=== PATIENT | male | born 1980 | race Two or more races ===

== ENCOUNTER 2024-09-10 15:50 | Emergency (ER) | payer BC, SELFPAY ==
[2024-09-10 15:50] VITALS: BMI 26.6
[2024-09-10 17:21] VITALS: BP 159/102; PULSE 92; RESP 19; TEMP 36.8; O2SAT 98
--- NOTE | 2024-09-10 17:26 | PD.EDRME ---
Rapid Medical Screening Exam RME Arrival date/time: 09/10/24 15:50 Chief Complaint: Hand/Wrist Problems Time Seen by Provider: 09/10/24 18:18 Vital signs: Vital Signs Temperature 98.2 F 09/10/24 17:21 Pulse Rate 92 09/10/24 17:21 Respiratory Rate 19 09/10/24 17:21 Blood Pressure 159/102 H 09/10/24 17:21 Pulse Oximetry (%) 98 09/10/24 17:21 Oxygen Delivery Method Room Air 09/10/24 17:21 Pulse ox room air is 98% Vital signs reviewed by provider: Yes RME Narrative: Patient bit by a large dog injuring his right index finger.
--- NOTE | 2024-09-10 17:30 | XR_ITS ---
Examination: Hand, right 3 views Technique: Hand AP, oblique, lateral 3 views Date and time of exam: September 10, 2024 1737 hours INDICATIONS: Dog bite to the second digit with pain FINDINGS: Pathologic fracture second digit through a cyst in the distal phalanx second digit this cyst measuring 10 mm No major offset at the fracture site IMPRESSION: Fracture distal phalanx second digit No foreign body
[2024-09-10] MEDS: DIPHTH,PERTUSS(ACELL),TET VAC 0.5 ML SYR- ADULT IMi (18:07)
--- NOTE | 2024-09-10 18:18 | PD.EDHAND ---
Upper Extremity Injury RME/HPI General Chief Complaint: Hand/Wrist Problems Stated Complaint: DOG BITE RIGHT HAND TODAY Time Seen by Provider: 09/10/24 18:18 Source: patient Arrival date/time: 09/10/24 15:50 Mode of arrival: ambulatory Limitations: no limitations RME / HPI RME / HPI narrative: Patient bit by a large dog injuring his right index finger. MD complaint: injury to: right and finger (Index finger) Other injuries: none Handedness: right Severity scale (1-10): 5 Relieving factors: none Exacerbating factors: none Context: injury and other (Dog bite) Associated symptoms: other Related Data Previous Rx's ?Medication ?Instructions ?Recorded Cyclobenzaprine * (FLEXERIL *) 10 mg PO Q8HR PRN muscle spasms 12/24/16 #15 tabs ibuprofen 600 mg tablet 1 tab PO Q8HR PRN pain #30 tabs 12/24/16 cephalexin 500 mg capsule 500 mg PO Q12H #20 caps 09/26/21 doxycycline hyclate 100 mg capsule 100 mg PO BID #14 caps 09/26/21 hydrocodone 5 mg-acetaminophen 325 1 tab PO Q6H PRN pain #5 tabs 10/01/21 mg tablet ibuprofen 800 mg tablet (IBU) 800 mg PO Q8H #20 tabs 02/26/23 amoxicillin 500 mg-potassium 1 tab PO TID #30 tabs 09/10/24 clavulanate 125 mg tablet (Augmentin) ibuprofen 800 mg tablet 800 mg PO Q8H PRN pain #30 tabs 09/10/24 Allergies Allergy/AdvReac Type Severity Reaction Status Date / Time No Known Allergies Allergy Verified 09/10/24 15:52 Review of Systems Constitutional Constitutional: Reports system reviewed and no additional complaints, except as documented Eyes Eyes: Reports system reviewed and no additional complaints, except as documented, Denies dry eyes, Denies exophthalmos and Reports floaters Cardiovascular Cardiovascular: Denies chest pain with activity and Denies claudication ED Exam Narrative Physical exam: Digit #2 of the right hand positive for an animal bite the wounds are jagged and not well-approximated. The distal finger at the DIP is not involved the finger tuft is involved. General Limitations: Present no limitations General appearance: Present alert and in no apparent distress Head Head exam: Present atraumatic Eye Eye exam: Present normal appearance, PERRL and EOMI ENT ENT exam: Present normal exam, normal oropharynx and mucous membranes moist Neck Neck exam: Present normal inspection, full ROM and trachea midline Extremities Exam Extremities exam: Present normal inspection, full ROM and other (The laceration appears to be 2 cm in diameter. There are also numerous puncture wounds to the right hand. Patient retains full range of motion of all digits of the right hand with the exception of the index finger. Neurovascular is intact.) Back Exam Back exam: Present normal inspection and full ROM Neurological Exam Neurological exam: Present alert and oriented X3 Psychiatric Psychiatric exam: Present normal affect and normal mood Skin Skin exam: Present warm, dry, intact and normal color Course Course Course Narrative: Patient will have the largest laceration approximated loosely. Quality Measures none Orders Category Date Time Status XR hand comp RT min 3V Stat Exams 09/10/24 17:30 Completed TET,DIP/PERT AC (Adult)-Tdap [Boostrix Adult (Tdap) Med 09/10/24 17:30 Discontinued Vacc] 0.5 ml IMI .ONCE ONE Vital Signs Vital signs: Vital Signs Temperature 98.2 F 09/10/24 17:21 Pulse Rate 92 09/10/24 17:21 Respiratory Rate 19 09/10/24 17:21 Blood Pressure 159/102 H 09/10/24 17:21 Pulse Oximetry (%) 98 09/10/24 17:21 Oxygen Delivery Method Room Air 09/10/24 17:21 Pulse ox is 98% room air PROCEDURES: Laceration Laceration 1: Site: other (Continue #2 of the right hand) Side (If applicable): right Description: irregular Depth: simple, single layer Local Anesthetic: lidocaine 1% Extremity Injury Patient data External records reviewed:: Other (specify) (na) Clinical information provided by:: patient Social determinants that could affect healthcare access:: none Patient has the following chronic illnesses:: na How is presenting disease/condition affected by chronic disease/condition?: no chronic disease (na) Evaluation data The following diagnostics were reviewed and interpreted by me:: other (specify) (na) Lab and/or radiology exams considered but not ordered:: na Interpretation Summary: na Medications / Prescriptions Medications or Prescriptions considered but not ordered:: na Medication administrations:: Medication Administration History Discontinued Medications Diphtheria/Tetanus/Acell Pertussis (Diphth,Pertuss(Acell),Tet Vac 0.5 Ml Syr- Adult) 0.5 ml IMi .ONCE ONE Stop: 09/10/24 17:31 Last Admin: 09/10/24 18:07 Dose: 0.5 ml Documented By: TESSIE lam Consultations Consultation(s) initiated? (list below): No Diagnosis Upper Extremity Injury Differential Diagnosis: finger sprain, dislocation of finger, fracture of humerus and fracture of clavicle Most likely diagnosis given after review of the tests above:: genaro Admission Indicated Admission indicated?: not indicated Admission Request Was there a request for admission?: No Disposition Plan Disposition Plan: Discharge Discharge Attestation Discharge Attestation: The patient and all family members were given an opportunity to ask questions and understood the discharge instructions. Discharge instructions specifically effects, indications for sooner follow up or return to the emergency department, and the expected course of current diagnosis. Patient condition: Stable Discharge Plan Plan Patient Disposition: HOME (Self Care) Discharge Disposition comment: Patient discharged home in no apparent distress Patient condition on transfer: Stable Prescriptions/Referrals Prescriptions/Med Rec: New amoxicillin-pot clavulanate [Augmentin] 500-125 mg tablet 1 tab PO TID Qty: 30 0RF ibuprofen 800 mg tablet 800 mg PO Q8H PRN (Reason: pain) Qty: 30 0RF No Action ibuprofen 600 MG tablet 1 tab PO Q8HR PRN (Reason: pain) Qty: 30 0RF Cyclobenzaprine * (FLEXERIL *) 10 MG tablet 10 mg PO Q8HR PRN (Reason: muscle spasms) Qty: 15 0RF doxycycline hyclate 100 mg capsule 100 mg PO BID Qty: 14 0RF cephalexin 500 mg capsule 500 mg PO Q12H Qty: 20 0RF hydrocodone-acetaminophen 5-325 mg tablet 1 tab PO Q6H MDD 3 PRN (Reason: pain) Qty: 5 0RF ibuprofen [IBU] 800 mg tablet 800 mg PO Q8H Qty: 20 0RF Problem List Clinical Impression: Animal bite Patient/Caregiver Discharge Instructions Discharge Activity: activity as tolerated Print Language: French Stand Alone Forms: Tere Award Info., Patient Portal Info Letter, Work/School Release PA/ASSOCIATE PROFESSOR OF THEOLOGY Supervising Physician PA/ASSOCIATE PROFESSOR OF THEOLOGY Supervising Physician: Candice
--- NOTE | 2024-09-10 19:26 | PD.EDHAND ---
Upper Extremity Injury RME/HPI General Chief Complaint: Hand/Wrist Problems Stated Complaint: DOG BITE RIGHT HAND TODAY Time Seen by Provider: 09/10/24 18:18 Source: patient Arrival date/time: 09/10/24 15:50 Mode of arrival: ambulatory Limitations: no limitations RME / HPI RME / HPI narrative: Patient bit by a large dog injuring his right index finger. Handedness: right Place: outdoors Severity: moderate Severity scale (1-10): 5 Relieving factors: none Exacerbating factors: none Context: injury and other (Dog bite) Associated symptoms: other Related Data Previous Rx's ?Medication ?Instructions ?Recorded Cyclobenzaprine * (FLEXERIL *) 10 mg PO Q8HR PRN muscle spasms 12/24/16 #15 tabs ibuprofen 600 mg tablet 1 tab PO Q8HR PRN pain #30 tabs 12/24/16 cephalexin 500 mg capsule 500 mg PO Q12H #20 caps 09/26/21 doxycycline hyclate 100 mg capsule 100 mg PO BID #14 caps 09/26/21 hydrocodone 5 mg-acetaminophen 325 1 tab PO Q6H PRN pain #5 tabs 10/01/21 mg tablet ibuprofen 800 mg tablet (IBU) 800 mg PO Q8H #20 tabs 02/26/23 amoxicillin 500 mg-potassium 1 tab PO TID #30 tabs 09/10/24 clavulanate 125 mg tablet (Augmentin) ibuprofen 800 mg tablet 800 mg PO Q8H PRN pain #30 tabs 09/10/24 Allergies Allergy/AdvReac Type Severity Reaction Status Date / Time No Known Allergies Allergy Verified 09/10/24 15:52 Review of Systems Constitutional Constitutional: Reports system reviewed and no additional complaints, except as documented Eyes Eyes: Reports system reviewed and no additional complaints, except as documented, Denies dry eyes, Denies exophthalmos and Reports floaters Cardiovascular Cardiovascular: Denies chest pain with activity and Denies claudication ED Exam General Limitations: Present no limitations General appearance: Present alert and in no apparent distress Head Head exam: Present atraumatic Eye Eye exam: Present normal appearance, PERRL and EOMI ENT ENT exam: Present normal exam, normal oropharynx and mucous membranes moist Neck Neck exam: Present normal inspection, full ROM and trachea midline Chest Chest inspection: Present normal inspection and symmetric chest wall rise Respiratory Respiratory exam: Present normal lung sounds bilaterally Cardiovascular Cardiovascular exam: Present regular rate, normal rhythm and normal heart sounds Abdominal Exam Abdominal exam: Present soft and normal bowel sounds Extremities Exam Extremities exam: Present normal inspection and full ROM Back Exam Back exam: Present normal inspection and full ROM Neurological Exam Neurological exam: Present alert, oriented X3 and CN II-XII intact Psychiatric Psychiatric exam: Present normal affect and normal mood Skin Skin exam: Present warm, dry, intact and normal color Course Course Course Narrative: Patient will have the largest laceration approximated loosely. Quality Measures none (na) Orders Category Date Time Status XR hand comp RT min 3V Stat Exams 09/10/24 17:30 Completed TET,DIP/PERT AC (Adult)-Tdap [Boostrix Adult (Tdap) Med 09/10/24 17:30 Discontinued Vacc] 0.5 ml IMI .ONCE ONE Vital Signs Vital signs: Vital Signs Temperature 98.2 F 09/10/24 17:21 Pulse Rate 92 09/10/24 17:21 Respiratory Rate 19 09/10/24 17:21 Blood Pressure 159/102 H 09/10/24 17:21 Pulse Oximetry (%) 98 09/10/24 17:21 Oxygen Delivery Method Room Air 09/10/24 17:21 PROCEDURES: Laceration Laceration 1: Site: hand (Right index finger) Side (If applicable): right Size (cm): 2 Description: irregular Depth: simple, single layer Local Anesthetic: lidocaine 1% Amount of anesthesia used (mL): 10 Skin layer closed with: nylon Suture size (cm): 4-0 Number of sutures: 5 Technique: simple, interrupted Extremity Injury MDM Narrative MDM Narrative:: Patient will be discharged to home after his hand has been repaired. Patient is to primary care physician for follow-up to today's visit in 2 days. Patient will have antibiotics Augmentin sent to the pharmacy of his choice. Patient is to keep his wound clean and dry. If signs of infection in the patient is to return here. Patient data External records reviewed:: Other (specify) (na) Clinical information provided by:: none (na) Social determinants that could affect healthcare access:: none (na) Patient has the following chronic illnesses:: na How is presenting disease/condition affected by chronic disease/condition?: no chronic disease (No chronic disease) Evaluation data The following diagnostics were reviewed and interpreted by me:: other (specify) (na) Lab and/or radiology exams considered but not ordered:: na Interpretation Summary: na Medications / Prescriptions Medications or Prescriptions considered but not ordered:: na Medication administrations:: Medication Administration History Discontinued Medications Diphtheria/Tetanus/Acell Pertussis (Diphth,Pertuss(Acell),Tet Vac 0.5 Ml Syr- Adult) 0.5 ml IMi .ONCE ONE Stop: 09/10/24 17:31 Last Admin: 09/10/24 18:07 Dose: 0.5 ml Documented By: TESSIE lam Consultations Consultation(s) initiated? (list below): No Diagnosis Upper Extremity Injury Differential Diagnosis: fracture of wrist, finger sprain and dislocation of finger Most likely diagnosis given after review of the tests above:: na Admission Indicated Admission indicated?: not indicated Admission Request Was there a request for admission?: No Disposition Plan Disposition Plan: Discharge Discharge Attestation Discharge Attestation: The patient and all family members were given an opportunity to ask questions and understood the discharge instructions. Discharge instructions specifically effects, indications for sooner follow up or return to the emergency department, and the expected course of current diagnosis. Patient condition: Stable Discharge Plan Plan Patient Disposition: HOME (Self Care) Discharge Disposition comment: Patient discharged home in no apparent distress Patient condition on transfer: Stable Prescriptions/Referrals Prescriptions/Med Rec: New amoxicillin-pot clavulanate [Augmentin] 500-125 mg tablet 1 tab PO TID Qty: 30 0RF ibuprofen 800 mg tablet 800 mg PO Q8H PRN (Reason: pain) Qty: 30 0RF No Action ibuprofen 600 MG tablet 1 tab PO Q8HR PRN (Reason: pain) Qty: 30 0RF Cyclobenzaprine * (FLEXERIL *) 10 MG tablet 10 mg PO Q8HR PRN (Reason: muscle spasms) Qty: 15 0RF doxycycline hyclate 100 mg capsule 100 mg PO BID Qty: 14 0RF cephalexin 500 mg capsule 500 mg PO Q12H Qty: 20 0RF hydrocodone-acetaminophen 5-325 mg tablet 1 tab PO Q6H MDD 3 PRN (Reason: pain) Qty: 5 0RF ibuprofen [IBU] 800 mg tablet 800 mg PO Q8H Qty: 20 0RF Problem List Clinical Impression: Animal bite Patient/Caregiver Discharge Instructions Discharge Activity: activity as tolerated Print Language: Belarusian Stand Alone Forms: [employer] Info., Patient Portal Info Letter PA/FEDERAL DISTRICT LAW CLERK Supervising Physician PA/FEDERAL DISTRICT LAW CLERK Supervising Physician: Candice
[2024-09-10] MEDS: cefTRIAXone 1,000 MG, LIDOCAINE 1% 20 ML 2.1 ML IM (20:26)
== END 2024-09-10 21:04 | disposition home or self-care (01) ==
PROVIDERS: Emergency Provider Emergency Medicine
DX: S61.451A Open bite of right hand, initial encounter (principal); W54.0XXA Bitten by dog, initial encounter; Z23 Encounter for immunization
CPT/HCPCS: 12001; 73130; 90471; 90715; 99283; J0696; J3490

== ENCOUNTER 2024-10-11 22:34 | Emergency (ER) | payer BC, SELFPAY ==
[2024-10-11 22:34] VITALS: BMI 26.6
[2024-10-11 22:42] VITALS: BP 188/118; BP 192/112; PULSE 73; RESP 20; TEMP 36.7; O2SAT 98
--- NOTE | 2024-10-12 01:42 | EDNOTE_ITS ---
ED Back Injury Pain RME/HPI General Chief Complaint: Back Pain/Injury Stated Complaint: BACK PAIN Time Seen by Provider: 10/11/24 22:56 Arrival date/time: 10/11/24 22:34 44M with no significant PMH presents to ED with several days of L lower back pain w/o fall/trauma. Patient also denies N/V, sudden onset, fevers/chills, paresthesia, bowel/bladder incontinence, and hematuria/dysuria. Patient states pain is better when walking/moving around. Patient also wants a work note. Limitations: no limitations Related Data Previous Rx's ?Medication ?Instructions ?Recorded Cyclobenzaprine * (FLEXERIL *) 10 mg PO Q8HR PRN muscl e spasms 12/24/16 #15 tabs ibuprofen 600 mg tablet 1 tab PO Q8HR PRN pain #30 t abs 12/24/16 cephalexin 500 mg capsule 500 mg PO Q12H #20 caps 09/05 05/26 doxycycline hyclate 100 mg capsule 100 mg PO BID #14 c aps 09/26/21 hydrocodone 5 mg-acetaminophen 325 1 tab PO Q6H PRN pa in #5 tabs 10/01/21 mg tablet ibuprofen 800 mg tablet (IBU) 800 mg PO Q8H #20 tabs 1 04/29/22 amoxicillin 500 mg-potassium 1 tab PO TID #30 tabs 09/28 clavulanate 125 mg tablet (Augmentin) ibuprofen 800 mg tablet 800 mg PO Q8H PRN pain #30 t abs 09/10/24 Allergies Allergy/AdvReac Type Severity Reaction Status Date / Time No Known Allergies Allergy Verified 09/10/24 15:52 Review of Systems Review of Systems Systems Reviewed: All systems reviewed, normal except as documented Constitutional Constitutional: Reports system reviewed and no additional complaints, except as documented, Denies fever(s) and Denies headache(s) ENT Ears, Nose, Mouth, and Throat: Denies disequilibrium and Denies headache(s) Cardiovascular Cardiovascular: Reports system reviewed and no additional complaints, except as documented, Denies chest pain and Denies dyspnea Respiratory Respiratory: Reports system reviewed and no additional complaints, except as documented, Denies cough and Denies dyspnea Gastrointestinal Gastrointestinal: Reports system reviewed and no additional complaints, except as documented, Denies abdominal pain, Denies nausea and Denies vomiting Musculoskeletal Musculoskeletal: Reports as per HPI and Reports back pain Neurologic Neurologic: Reports system reviewed and no additional complaints, except as documented, Denies confusion, Denies disequilibrium and Denies headache(s) Psychiatric Psychiatric: Denies confusion Past Medical History Social History SMOKING STATUS: Current every day smoker ED Exam General Limitations: Present no limitations General appearance: Present alert and in no apparent distress Head Head exam: Present atraumatic Eye Eye exam: Present normal appearance, PERRL and EOMI ENT ENT exam: Present normal exam, normal oropharynx and mucous membranes moist Neck Neck exam: Present normal inspection, full ROM and trachea midline Chest Chest inspection: Present normal inspection and symmetric chest wall rise Respiratory Respiratory exam: Present normal lung sounds bilaterally Cardiovascular Cardiovascular exam: Present regular rate, normal rhythm and normal heart sounds Abdominal Exam Abdominal exam: Present soft and normal bowel sounds Extremities Exam Extremities exam: Present normal inspection and full ROM Back Exam Back exam: Present normal inspection and full ROM Neurological Exam Neurological exam: Present alert, oriented X3 and CN II-XII intact Psychiatric Psychiatric exam: Present normal affect and normal mood Skin Skin exam: Present warm, dry, intact and normal color Course Quality Measures none Orders Category Date Time Status CYCLObenzaPRINE [Flexeril] Med 10/11/24 22:57 Discontinued 5 mg PO X1 ONE Vital Signs Vital signs: Vital Signs Temperature 98.0 F 10/11/24 22:42 Pulse Rate 73 10/11/24 22:42 Respiratory Rate 20 10/11/24 22:42 Blood Pressure 188/118 H 10/11/24 22:42 Pulse Oximetry (%) 98 10/11/24 22:42 Oxygen Delivery Method Room Air 10/11/24 22:42 O2 at 98% on RA and WNLs Back Pain / Injury MDM Narrative MDM Narrative:: 44M with no significant PMH presents to ED with several days of L lower back pain w/o fall/trauma. Patient also denies N/V, sudden onset, fevers/chills, paresthesia, bowel/bladder incontinence, and hematuria/dysuria. Patient states pain is better when walking/moving around. Patient also wants a work note. Physical exam reveals no midline tenderness. Gait normal. ROM intact. Patient is afebrile, calm, and alert. Likely related to muscle tightness given movement improves symptoms. Meds and career development counselor given. BP noted to quite high. Counseled to see PCP for official diagnosis and BP control. Patient data External records reviewed:: [facility] previous records Clinical information provided by:: patient Social determinants that could affect healthcare access:: none Patient has the following chronic illnesses:: none How is presenting disease/condition affected by chronic disease/condition?: no chronic disease Evaluation data The following diagnostics were reviewed and interpreted by me:: other (specify) (none) Lab and/or radiology exams considered but not ordered:: not ordered Interpretation Summary: n/a Medications / Prescriptions Medications or Prescriptions considered but not ordered:: ordered Medication administrations:: Medication Administration History Discontinued Medications Cyclobenzaprine HCl (Cyclobenzaprine 5 Mg Tablet) 5 mg PO X1 ONE Stop: 10/11/24 22:58 Last Admin: 10/11/24 23:04 Dose: 5 mg Documented By: OA above Consultations Consultation(s) initiated? (list below): No Diagnosis Differential diagnosis back pain/injury: lumbar radiculopathy, sciatica, strain of lumbar region, renal colic, pyelonephritis, thoracic back pain, AAA, discitis and other (low back pain) Most likely diagnosis given after review of the tests above:: low back pain Admission Indicated Admission indicated?: not indicated Admission Request Was there a request for admission?: No Disposition Plan Disposition Plan: Discharge Discharge Attestation Discharge Attestation: The patient and all family members were given an opportunity to ask questions and understood the discharge instructions. Discharge instructions specifically effects, indications for sooner follow up or return to the emergency department, and the expected course of current diagnosis. Patient condition: Stable Discharge Plan Plan Patient Disposition: HOME (Self Care) Prescriptions/Referrals Prescriptions/Med Rec: No Action ibuprofen 600 MG tablet 1 tab PO Q8HR PRN (Reason: pain) Qty: 30 0RF Cyclobenzaprine * (FLEXERIL *) 10 MG tablet 10 mg PO Q8HR PRN (Reason: muscle spasms) Qty: 15 0RF doxycycline hyclate 100 mg capsule 100 mg PO BID Qty: 14 0RF cephalexin 500 mg capsule 500 mg PO Q12H Qty: 20 0RF hydrocodone-acetaminophen 5-325 mg tablet 1 tab PO Q6H MDD 3 PRN (Reason: pain) Qty: 5 0RF ibuprofen [IBU] 800 mg tablet 800 mg PO Q8H Qty: 20 0RF amoxicillin-pot clavulanate [Augmentin] 500-125 mg tablet 1 tab PO TID Qty: 30 0RF ibuprofen 800 mg tablet 800 mg PO Q8H PRN (Reason: pain) Qty: 30 0RF Referrals: Temporary Provider,ED [Physician] - In 1 week Problem List Clinical Impression: Low back pain, Elevated blood-pressure reading without diagnosis of hypertension Patient/Caregiver Discharge Instructions Education Materials: ED Back Pain (Acute or Chronic), ED Hypertension, To Be Confirmed Additional Instructions: Please follow-up with PCP within 24-48 hours and return immediately if symptoms worsen. If problem persists, recommend outpatient PT and/or MRI follow-up. In the meantime, rest, use ice/heat, and/or compression. See PCP for HTN diagnosis and BP control. Print Language: Omani Stand Alone Forms: Work/School Release PA/CIGARETTE FILTER INSPECTOR Supervising Physician PA/CIGARETTE FILTER INSPECTOR Supervising Physician: Dr. Da Silva
== END 2024-10-11 23:08 | disposition home or self-care (01) ==
PROVIDERS: Emergency Provider Emergency Medicine
DX: M54.50 Low back pain, unspecified (principal); R03.0 Elevated blood-pressure reading, without diagnosis of hypertension
CPT/HCPCS: 99282; A9270

== ENCOUNTER 2024-12-16 19:58 | Emergency (ER) | payer BC, SELFPAY ==
[2024-12-16 19:58] VITALS: BMI 26.6
--- NOTE | 2024-12-16 20:33 | EKG_ITS ---
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
--- NOTE | 2024-12-16 21:05 | XR_ITS ---
EXAMINATION: PA chest single view TECHNIQUE: Upright PA chest single view Date and time: December 16, 2024, 2108 hours INDICATIONS: Shortness of breath cardiac palpitations today FINDINGS: Normal heart size The lungs are clear. The osseous structures are intact IMPRESSION: No active disease
--- NOTE | 2024-12-16 21:06 | PD.EDRME ---
Rapid Medical Screening Exam RME Arrival date/time: 12/16/24 19:58 This is a case of 44-year-old male with no medical history came into the emergency room due to chest pain and palpitation after started on blood pressure medication lisinopril for 2 days worsening of the symptoms this patient decided to start consulted in the emergency room Chief Complaint: Chest Pain Time Seen by Provider: 12/16/24 20:27
[2024-12-16 21:27] VITALS: BP 163/103; PULSE 83; RESP 18; TEMP 36.3; O2SAT 100
[2024-12-16 21:32] LABS: Basophils # (Auto) 0.1 Thou/mm3 (0.0-0.2); Basophils % (Auto) 1 % (0-2.5); Eosinophils # (Auto) 0.1 Thou/mm3 (0.0-0.5); Eosinophils % (Auto) 1 % (0-10); Hematocrit 44.2 % (41.0-53.0); Hemoglobin 15.1 g/dL (13.5-16.0); Immature Granulocytes Auto 0.04 Thou/mm3 (0.00-0.00); Lymphocytes # (Auto) 3.7 Thou/mm3 (1.0-4.8); Lymphocytes % (Auto) 26 % (10-50); Mean Corpuscular HGB Conc 34.2 g/dl (31.0-37.0); Mean Corpuscular Hemoglobin 32.2 pg (25.0-35.0); Mean Corpuscular Volume 94 fL (80-100); Monocytes # (Auto) 0.9 Thou/mm3 (0.0-0.8); Monocytes % (Auto) 7 % (0-12); Neutrophils # (Auto) 9.1 Thou/mm3 (1.8-7.7); Neutrophils % (Auto) 65 % (37-80); Nucleated Red Blood Cell # 0.00 Thou/mm3 (0.00-0.00); Nucleated Red Blood Cell % 0 /100 WBC (0); Platelet Count 453 Thou/mm3 (140-440); RDW Standard Deviation 44.8 fL (35.1-43.9); Red Blood Count 4.69 Miln/mm3 (4.50-5.90); White Blood Count 14.0 Thou/mm3 (3.8-10.6)
--- NOTE | 2024-12-16 21:37 | EDNOTE_ITS ---
ED General RME/HPI General Chief complaint: Chest Pain Stated complaint: CHEST PAIN AFTER TAKING NEW MEDS Time Seen by Provider: 12/16/24 20:27 Arrival date/time: 12/16/24 19:58 CC: Agitation nausea, HPI onset after having an increased dose of hydrochlorothiazide and lisinopril that he started taking 3 days ago. The patient states he has been on this in the past but over lower dosage. Admits he has anxiety smokes cigarettes, and drinks a couple of energy drinks a day. Patient is afebrile nontoxic-appearing. Mildly anxious. RME / HPI RME / HPI narrative: 12/16/24 19:58 This is a case of 44-year-old male with no medical history came into the emergency room due to chest pain and palpitation after started on blood pressure medication lisinopril for 2 days worsening of the symptoms this patient decided to start consulted in the emergency room Related Data Previous Rx's ?Medication ?Instructions ?Recorded Cyclobenzaprine * (FLEXERIL *) 10 mg PO Q8HR PRN muscl e spasms 12/24/16 #15 tabs ibuprofen 600 mg tablet 1 tab PO Q8HR PRN pain #30 t abs 12/24/16 cephalexin 500 mg capsule 500 mg PO Q12H #20 caps 09/05 05/26 doxycycline hyclate 100 mg capsule 100 mg PO BID #14 c aps 09/26/21 hydrocodone 5 mg-acetaminophen 325 1 tab PO Q6H PRN pa in #5 tabs 10/01/21 mg tablet ibuprofen 800 mg tablet (IBU) 800 mg PO Q8H #20 tabs 1 04/29/22 amoxicillin 500 mg-potassium 1 tab PO TID #30 tabs 09/28 clavulanate 125 mg tablet (Augmentin) ibuprofen 800 mg tablet 800 mg PO Q8H PRN pain #30 t abs 09/10/24 Allergies Allergy/AdvReac Type Severity Reaction Status Date / Time No Known Allergies Allergy Verified 09/10/24 15:52 Past Medical History Past Medical History CARDIAC: Positive Hypertension; Negative Congestive Heart Failure RESPIRATORY: Negative Chronic Obstructive Pulmonary Disease (COPD) GENITOURINARY: Negative Renal Disease ENDOCRINE: Negative Diabetes Mellitus Type 1 or Diabetes Mellitus Type 2 Social History SMOKING STATUS: Current some day smoker ED Exam Narrative Physical exam: [General: Anxious but not in any acute distress Head normocephalic HEENT: Within acceptable limits Neck is supple nontender Chest equal chest rise nontender to palpation Respiratory: Clear to auscultation no wheezes crackles or rubs CV: Rate rhythm is regular no murmurs rubs or clicks Abdomen is distended secondary to body habitus soft nontender no masses positive bowel sounds all 4 quadrants Back: No CVA tenderness no spinous process tenderness from cervical spine thoracic and lumbar spine Skin: Intact no petechiae rash induration ulceration or crepitus Extremities: Moving all extremity against resistance cap refill less than 2 seconds neurosensory intact Neuro: Awake alert oriented x3 Glascow coma 15 no focal deficits] Course Course Course Narrative: Patient is laboratory results are wholly unremarkable. I advised the patient to cut his HCTZ lisinopril pills in half and try them and follow-up with his primary care doctor strongly urged him to cut back on cigarette smoking energy drinks and not to take any Lortabs. Patient is also strongly urged to go back on his Suboxone regimen. Quality Measures none Orders Category Date Time Status EKG (ED ONLY) *Do not use* NOW Care 12/16/24 20:33 Completed EKG (ED Only) Stat Exams 12/16/24 20:33 Draft XR chest 1V Stat Exams 12/16/24 21:05 Completed BNP [B-Type Natriuretic Peptide] Stat Lab 12/16/24 21:17 Completed CBC Stat Lab 12/16/24 21:17 Completed CMP [Comprehensive Metabolic Panel] Stat Lab 12/16/24 21:17 Completed TSH [Thyroid Stimulating Hormone] Stat Lab 12/16/24 21:17 Completed Troponin I Stat Lab 12/16/24 21:17 Completed Urinalysis Stat Lab 12/16/24 21:05 Ordered hydrALAZINE INJ [Apresoline Inj] Med 12/16/24 21:40 Discontinued 10 mg IVP X1 ONE Vital Signs Vital signs: Vital Signs Temperature 97.3 F 12/16/24 21:27 Pulse Rate 83 12/16/24 21:27 Respiratory Rate 18 12/16/24 21:27 Blood Pressure 163/103 H 12/16/24 21:27 Pulse Oximetry (%) 100 12/16/24 21:27 Oxygen Delivery Method Room Air 12/16/24 21:27 Discharge Plan Plan Patient Disposition: HOME (Self Care) Patient condition on transfer: Stable Prescriptions/Referrals Prescriptions/Med Rec: No Action ibuprofen 600 MG tablet 1 tab PO Q8HR PRN (Reason: pain) Qty: 30 0RF Cyclobenzaprine * (FLEXERIL *) 10 MG tablet 10 mg PO Q8HR PRN (Reason: muscle spasms) Qty: 15 0RF doxycycline hyclate 100 mg capsule 100 mg PO BID Qty: 14 0RF cephalexin 500 mg capsule 500 mg PO Q12H Qty: 20 0RF hydrocodone-acetaminophen 5-325 mg tablet 1 tab PO Q6H MDD 3 PRN (Reason: pain) Qty: 5 0RF ibuprofen [IBU] 800 mg tablet 800 mg PO Q8H Qty: 20 0RF amoxicillin-pot clavulanate [Augmentin] 500-125 mg tablet 1 tab PO TID Qty: 30 0RF ibuprofen 800 mg tablet 800 mg PO Q8H PRN (Reason: pain) Qty: 30 0RF Referrals: Temporary Provider,ED [Physician, Emergency Medicine] - In 1 week Problem List Clinical Impression: Hypertension Patient/Caregiver Discharge Instructions Education Materials: Controlling High Blood Pressure Additional Instructions: Cut your high blood pressure medication tablets in half and take a half of them. Follow-up with your primary care doctor. Avoid energy drinks when possible, try and cut back on your smoking. If there are any worsening of symptoms in sp ite of these interventions return the emergency room for reevaluation. Print Language: German Stand Alone Forms: Tere Award Info., Work/School Release, Patient Portal Info Letter PA/LOCAL BULK DRIVER Supervising Physician PA/LOCAL BULK DRIVER Supervising Physician: Nico Bender ENP [facility] Clinical Information Provided by: none and patient Medical Records reviewed [facility] Meds/Rx considered, not ordered None Labs/Rad/Tests considered, not ordered None Chronic Illness/Social Conditions which may negatively complicate care or outcome(s)-explain: ETOH/drugs/substance abuse Explain: Smoker EKG Interpretation EKG #1: EKG Interpretation: EKG performed at 2104 shows a ventricular rate of 78 CO interval 157 QRS of 92 QTc of 418 sinus rhythm. Labs Labs: interpreted by in Lab(s) Interpretation(s): CBC shows a mild leukocytosis no other anemia or thrombocytopenia CMP shows no significant electrolyte imbalances glucose at 108. No transami nitis T. bili elevation or renal impairment. Troponin is negative BNP is negative TSH is within acceptable limits Imaging Imaging interpretation: interpreted by me Imaging Interpretation(s): Chest x-ray is unremarkable. Medication Administration(s) Medication Administration History Discontinued Medications Hydralazine HCl (Hydralazine Inj 20 Mg/Ml Vial) 10 mg IVP X1 ONE Stop: 12/16/24 21:41 Last Admin: 12/16/24 21:58 Dose: 10 mg Documented By: [email or web address]
[2024-12-16 21:48] LABS: B-Type Natriuretic Peptide < 20 pg/mL (0-100)
[2024-12-16 21:52] LABS: Alanine Aminotransferase 23 U/L (10-49); Albumin, Serum 4.9 gm/dL (3.5-5.0); Albumin/Globulin Ratio 1.6 (1.2-2.2); Alkaline Phosphatase 89 U/L (46-116); Anion Gap 8 (7-16); Aspartate Amino Transferase 22 U/L (0-34); BUN/Creatinine Ratio 10 Ratio (12-20); Bilirubin,Total 0.2 mg/dL (0.3-1.2); Blood Urea Nitrogen 9 mg/dL (9-23); Calcium 10.2 mg/dL (8.3-10.6); Calcium (Corrected) 10.2 mg/dL (8.5-10.1); Carbon Dioxide 28.1 mMol/L (20.0-31.0); Chloride 101 mMol/L (98-107); Creatinine (Component) 0.9 mg/dL (0.6-1.3); Estimated Creatinine Clearance 103.6 mL/min (>60); Globulin 3.0 gm/dL (2.3-3.5); Glucose 108 mg/dL (74-106); Osmolality,Calculated 273 (275-295); Potassium 3.8 mMol/L (3.4-5.1); Sodium 137 mMol/L (136-145); Thyroid Stimulating Hormone 2.24 uIU/mL (0.55-4.78); Total Protein 7.9 gm/dL (5.7-8.2); Troponin I < 0.002 ng/mL (0.0-0.045); eGFR > 60 See Note
[2024-12-16 21:58] VITALS: BP 141/92; PULSE 73
[2024-12-16] MEDS: hydrALAZINE INJ 20 MG/ML VIAL 10 MG IVP (21:58)
[2024-12-16 22:27] VITALS: BP 155/92; PULSE 81; RESP 18; O2SAT 100
== END 2024-12-16 22:28 | disposition home or self-care (01) ==
PROVIDERS: Nurse Practitioner Family; Emergency Provider Emergency Medicine; PCP Family Medicine
DX: R07.9 Chest pain, unspecified (principal); I10 Essential (primary) hypertension; F17.210 Nicotine dependence, cigarettes, uncomplicated; F41.9 Anxiety disorder, unspecified
CPT/HCPCS: 36415; 71045; 80053; 81001; 83880; 84443; 84484; 85025; 93005; 96374; 99283; J0360